=== PATIENT | female | born 1945 ===

== ENCOUNTER 2018-02-12 10:31 | Day surgery (SDC) | payer MEDICARE ==
[~2018-02-12 10:31] MED LIST: Buffered Lidocaine 0.9% SYRIN* 5 ML/SYR SYRINGE INTRADERM ONE
[2018-02-12] MEDS ORDERED: ceFAZolin 2 GM PREMIX in ORs 2 GM/50 ML BAG IVPB ONE (10:52)
[2018-02-12] MEDS ORDERED: Lidocaine 2% PF* 10 ML AMP ONE (12:45)
[2018-02-12] MEDS ORDERED: Bupivacaine 0.5% SDV PF* 30ML VIAL ONE (12:45)
[2018-02-12] MEDS ORDERED: Midazolam* 1 MG/ML 5 ML VIAL (5 MG) ONE (14:02)
[2018-02-12] MEDS ORDERED: fentaNYL* 50 MCG/ML 2 ML VIAL (100 MCG VIAL) ONE (14:12)
[2018-02-12] MEDS ORDERED: Propofol* 10 MG/ML 20 ML BTL IV PUSH ONE (14:22)
[2018-02-12 14:50] VITALS: BP 145/78
--- NOTE | 2018-02-12 18:15 | OP ---
Operative Report - Blank - Operative Report Date of Operation: 02/12/18 Note: PATIENT: Yarely Maria DATE OF : 1945 DATE OF SURGERY: 02/12/2018 SURGEON: Janes Montaño MD SALES REPRESENTATIVE [employer] GOODS: none ANESTHESIOLOGIST: Dr. Cross PREOPERATIVE DIAGNOSIS: Right plantar foot mass POSTOPERATIVE DIAGNOSIS: Right plantar foot mass OPERATION: Excision of right plantar foot mass ANESTHESIA: MAC IMPLANTS: None TOURNIQUET TIME: Less than 30 minutes with an ankle Esmarch tourniquet SPECIMENS: Right plantar foot mass sent to pathology ESTIMATED BLOOD LOSS: minimal COMPLICATIONS: none STATUS: Stable from the operating room to the recovery room and then home INDICATIONS FOR PROCEDURE: Yarely has had a painful right plantar foot mass. Both operative and non- operative treatment alternatives were reviewed. Further, the nature and risks of surgery were reviewed in careful detail. Our discussions regarding the risks of surgery included, but were not limited to, infection, wound problems, nerve injury, neuroma, RSD, persistent symptoms, recurrence of the mass, blood clot, need for further surgery, failure of the surgery, and even the remote chance of catastrophic complication, including loss of limb. DESCRIPTION OF PROCEDURE: The patient was seen in the preoperative holding unit and informed written consent was obtained. The appropriate extremity was marked. The patient was then brought to the operating room and carefully positioned on the operating room table. Anesthesia was induced. All bony prominences were padded with great care. A chlorhexidine based pre-scrub was performed followed by a chloraprep prep and drape in standard sterile fashion. A surgical safety pause was then conducted in which we confirmed the appropriate patient, extremity, planned procedure, availability of equipment, indication and administration of prophylactic antibiotics, and DVT prophylaxis in the form of a compression boot on the non-surgical extremity. I began with an Esmarch exsanguination and placement of an ankle Esmarch tourniquet. I made an approximately 2 cm longitudinal incision at the medial aspect of the forefoot. I used tenotomy scissors to bluntly dissect to the mass. I defined the borders of the mass and then used the tenotomy scissors to excise the mass. It was 2 cm in length by 2 cm in width. The mass was then sent to pathology. I then released the tourniquet and hemostasis was obtained. The wound was copiously irrigated and meticulously closed in layers utilizing 3- 0 Monocryl and 3-0 Nylon for the skin. A sterile dressing was then applied. The patient was then awakened from anesthesia and transferred to the recovery room in stable condition. There were no complications. All needle and sponge counts were correct at the end of the case. ATTESTATION: I attest I was present and scrubbed and performed the entire procedure myself. POSTOPERATIVE PLAN: She will follow up in 2 weeks for likely suture removal.
== END 2018-02-12 15:35 | disposition home or self-care (01) ==
LOC: OR 10:31
PROVIDERS: ATTEND Orthopaedic Surgery
DX: R22.41 Localized swelling, mass and lump, right lower limb (principal); Z85.3 Personal history of malignant neoplasm of breast; I10 Essential (primary) hypertension; E78.5 Hyperlipidemia, unspecified; I48.91 Unspecified atrial fibrillation; I25.2 Old myocardial infarction; Z79.82 Long term (current) use of aspirin
CPT/HCPCS: 88304; J0690; J2001; J2250; J2704; J3010